=== PATIENT | male | born 1970 | race Caucasian/White ===

== ENCOUNTER 2017-07-10 11:58 | Emergency (ER) | payer OTHER ==
[~2017-07-10] VITALS: Ht 177.8 cm; Wt 100.3 kg
[2017-07-10 13:29] VITALS: BP 122/75
== END 2017-07-10 14:01 | disposition home or self-care (01) ==
LOC: ED 13:40
DX: K64.4 Residual hemorrhoidal skin tags (principal)
CPT/HCPCS: 99283